=== PATIENT | female | born 1995 | race Caucasian/White ===

== ENCOUNTER 2019-04-26 16:14 | Emergency (ER) | payer BC, OTHER ==
[2019-04-26] MEDS ORDERED: SODIUM CHLORIDE 0.9% 1,000 ML IV ONE (16:57)
[2019-04-26 17:34] LABS: ALT 18 U/L (9-52); AST 16 U/L (14-36); African American GFR (CKD) >90 (>60 ml/min/1.73 sqM); Alkaline Phosphatase 60 U/L (38-126); Anion Gap 10 mmol/L; Blood Urea Nitrogen 5 mg/dL (7-17); Calcium 9.3 mg/dL (8.4-10.2); Carbon Dioxide 21 mmol/L (22-30); Chloride 105 mmol/L (98-107); Glucose 87 mg/dL (74-99); Potassium 3.6 mmol/L (3.5-5.1); Sodium 136 mmol/L (137-145); Total Bilirubin 0.3 mg/dL (0.2-1.3); Total Protein 6.9 g/dL (6.3-8.2)
[2019-04-26 17:39] LABS: INR 0.9 (<1.2); Prothrombin Time 9.7 sec (9.0-12.0)
[2019-04-26 17:40] LABS: Partial Thromboplastin Time 22.8 sec (22.0-30.0)
[2019-04-26 17:52] LABS: Anisocytosis Slight; Basophils % (A) 0 %; Eosinophils # (A) 0.1 k/uL (0-0.7); Eosinophils % (A) 1 %; HCT 35.3 % (34.0-46.0); HGB 12.3 gm/dL (11.4-16.0); Lymphocytes # (A) 1.2 k/uL (1.0-4.8); Lymphocytes % (A) 16 %; MCH 28.6 pg (25.0-35.0); MCHC 34.7 g/dL (31.0-37.0); MCV 82.4 fL (80.0-100.0); Monocytes # (A) 0.3 k/uL (0-1.0); Monocytes % (A) 4 %; Neutrophils # (A) 5.7 k/uL (1.3-7.7); Neutrophils % (A) 78 %; Platelet Count 234 k/uL (150-450); RBC 4.29 m/uL (3.80-5.40); RDW 16.2 % (11.5-15.5); WBC 7.3 k/uL (3.8-10.6)
--- NOTE | 2019-04-26 18:03 | US ---
EXAMINATION TYPE: Transabdominal DATE OF EXAM: 04/26/2019 5:47 PM COMPARISON: US CLINICAL HISTORY: Pain per order. Vaginal bleeding x 3 hours. . EXAM PERFORMED: Transabdominal (TA) EXAM MEASUREMENTS: GESTATIONAL AGE / DATING Physician Established: (12 weeks/0 days) EDC: 11/08/2019 Dates by LMP: (13 weeks/0 days) EDC: 11/01/2019 Dates by First Scan: This is first scan Dates by Current Scan for: (12 weeks/0 days) EDC: 11/08/2019 MATERNAL ANATOMY Uterus: 11.3 x 7.9 x 6.4 cm. Right Ovary: 3.4 x 2.9 x 2.5 cm. Anechoic area seen measurin.1 x 1.2 x 1.2 cm. Left Ovary: 2.7 x 1.8 x 1.9 cm. Post CDS / Adnexa: appears wnl Presence of free fluid: none seen Presence of corpus luteal cyst: not seen with certainty. Anechoic area seen right ovary as mentioned above: 1.1 x 1.2 x 1.2 cm. Presence of subchorionic bleed: not seen GESTATION / SURVEY CRL: 5.31 cm. (12 weeks/0 days) Yolk Sac (normal less than 6mm): not seen with certainty Heart Rate: 172 bpm Rhythm: Heart rate measures upper limits of normal IUP: Viable IUP Nuchal Translucency 10-14wks (normal less than 3mm): not well seen Date of LMP: 01/26/2020 Beta HcG (if available): not available IMPRESSION: heart rate is noted to measure upper limits of normal, otherwise no complicating process is see n. Single live intrauterine has a sonographic age of 12 weeks and 0 days, slightly discorda nt with menstrual age. Estimated date of delivery of 11/08/2019.
[2019-04-26 18:17] LABS: HCG,Quantitative Serum 60303.2 mIU/mL
[2019-04-26 18:49] VITALS: PULSE 97
[2019-04-26 18:54] LABS: Appearance,Urine Clear (Clear); Bacteria,Urine Rare /hpf; Bilirubin,Urine Negative (Negative); Blood,Urine Moderate (Negative); Color,Urine Light Yellow; Glucose,Urine (UA) Negative (Negative); Hyaline Casts,Urine 10 /lpf (0-2); Ketones,Urine 1+ (Negative); Leukocyte Esterase,Urine Negative (Negative); Mucus,Urine Occasional /hpf; Nitrite,Urine Negative (Negative); PH, Urine 6.5 (5.0-8.0); Protein,Urine Trace (Negative); RBC,Urine 1 /hpf (0-5); Specific Gravity,Urine 1.008 (1.001-1.035); Squamous Epithelial Cell,Urine 1 /hpf (0-4); Urobilinogen,Urine <2.0 mg/dL (<2.0); WBC,Urine 1 /hpf (0-5)
[2019-04-26] MEDS ORDERED: CEPHALEXIN 500 MG CAP PO STA (19:55)
--- NOTE | 2019-04-26 19:58 | ED ---
General Adult HPI - General Chief complaint: Vaginal Bleeding Stated complaint: Vaginal bleeding Time Seen by Provider: 04/26/19 16:25 Source: patient Mode of arrival: ambulatory Limitations: no limitations - History of Present Illness Initial comments: The patient is a 23-year-old female presents emergency room with report of vaginal bleeding. The patient is approximately 12 weeks . She does see Dr. Sarmiento out of [facility]. States that she had an appointment last week in office. Pap smear and ultrasound were performed. Patient has not had any previous vaginal bleeding or issues with this . The patient is . Today the patient was at work. She had the sensation that she had urinated on herself. She went into the bathroom to find a significant amount of blood. She did sit on the toilet and passed a small amount of tissue. She did call her family who did call EMS and transported her to the hospital. She is highly concerned that she is having a miscarriage. Did have an elective for her first . This was 3 years ago. She denies any abdominal cramping or pain. No recent fevers or chills. Denies any back or flank pain. No changes in her urination to include dysuria, hematuria or difficulty voiding. Denies any changes in her bowel movements including diarrhea, constipation, paula anotic stools or hematochezia. No abnormal vaginal discharge. No concern for sexually transmitted infections. No recent abdominal trauma. There are no other alleviating, precipitating or modifying factors - Related Data Home Medications Medication Instructions Recorded Confirmed Kgl-[id number]-Bmqwa Acid 1 cap PO DAILY 04/26/19 04/26/19 [-U Capsule (formulary)] Previous Rx's Medication Instructions Recorded Cephalexin [Keflex] 500 mg PO Q12HR 5 Days #10 cap 04/26/19 Allergies Allergy/AdvReac Type Severity Reaction Status Date / Time Penicillins Allergy Unknown Unknown Verified 04/26/19 16:49 Review of Systems ROS Statement: Those systems with pertinent positive or pertinent negative responses have been documented in the HPI. ROS Other: All systems not noted in ROS Statement are negative. Past Medical History Past Medical History: Asthma Additional Past Medical History / Comment(s): Anemia History of Any Multi-Drug Resistant Organisms: None Reported Past Surgical History: No Surgical Hx Reported Past Psychological History: No Psychological Hx Reported Smoking Status: Never smoker Past Alcohol Use History: None Reported Past Drug Use History: None Reported General Exam Limitations: no limitations General appearance: alert, in no apparent distress Head exam: Present: atraumatic, normocephalic, normal inspection Eye exam: Present: normal appearance, PERRL, EOMI. Absent: scleral icterus, conjunctival injection, periorbital swelling ENT exam: Present: normal exam, mucous membranes moist Neck exam: Present: normal inspection. Absent: tenderness, meningismus, lymphadenopathy Respiratory exam: Present: normal lung sounds bilaterally. Absent: respiratory distress, wheezes, rales, rhonchi, stridor Cardiovascular Exam: Present: normal rhythm, tachycardia, normal heart sounds. Absent: systolic murmur, diastolic murmur, rubs, gallop, clicks GI/Abdominal exam: Present: soft, normal bowel sounds. Absent: distended, tenderness, guarding, rebound, rigid External exam: Present: normal external exam. Absent: erythema, swelling, lesions, lacerations Speculum exam: Present: normal speculum exam, vaginal bleeding, other (cervix is closed). Absent: erythema, vaginal discharge, cervical discharge, foreign body, tissue Extremities exam: Present: normal inspection, full ROM, normal capillary refill. Absent: tenderness, pedal edema, joint swelling, calf tenderness Back exam: Present: normal inspection Neurological exam: Present: alert, oriented X3, CN II-XII intact Psychiatric exam: Present: normal affect, normal mood Skin exam: Present: warm, dry, intact, normal color. Absent: rash Course Vital Signs 04/26/19 04/26/19 04/26/19 16:21 18:48 20:19 Temperature 98.6 F 98.4 F Pulse Rate 111 H 97 97 Respiratory 20 16 18 Rate Blood Pressure 141/108 130/87 128/87 O2 Sat by Pulse 99 100 99 Oximetry Medical Decision Making - Medical Decision Making Upon arrival the patient is placed in room 22. She is hooked up to continuous pulse ox and cardiac monitoring. A thorough history of physical exam was performed. The patient is not having any pain at this time. I did recommend IV access. The patient was given a liter of normal saline. Laboratory studies were conducted. Hemoglobin is 12.3. Platelets 234. PT 9.7. INR 0.9. Sodium 136, creatinine 0.8, beta Quant is 60,303. Urinalysis shows trace protein, 1+ ketones, moderate blood, rare bacteria, 10 hyaline casts and occasional mucous. The patient's blood type is A+. Ultrasound of the demonstrates heart rates at 172 bpm. No accompanying process seen. Single live intrauterine has sonographic age of 12 weeks and 0 days. Slightly di scordant with menstrual age. I did discuss this with the patient. She reports that her bleeding has slowed at this time. I do evaluate the tissue that the patient passed that she did bring it into the emergency room and it does consist of blood clot and membranous tissue. I did perform a pelvic exam which demonstrated a small amount of bright red blood in the vagina. No tissue seen. Cervix is closed. I called and discuss the results with Dr. Dillon who is a partner of Dr. Sarmiento. He does agree to pelvic rest, antibiotic treatment for abnormal ua and follow-up with Dr. Sarmiento in office. I informed patient of this. She is informed to not use tampons or have intercourse. No heavy lift ing. She will be given a work note. I did provide the patient with a dose of Keflex in the ER here at she will also be given a prescription for Keflex. If the patient has any new or worsening symptoms she should return to the emergency room. The patient was then discharged home in stable condition - Lab Data Result diagrams: 04/26/19 17:10 04/26/19 17:10 Lab Results 04/26/19 04/26/19 04/26/19 Range/Units 17:09 17:10 17:10 WBC 7.3 (3.8-10.6) k/uL RBC 4.29 (3.80-5.40) m/uL Hgb 12.3 (11.4-16.0) gm/dL Hct 35.3 (34.0-46.0) % MCV 82.4 (80.0-100.0) fL MCH 28.6 (25.0-35.0) pg MCHC 34.7 (31.0-37.0) g/dL RDW 16.2 H (11.5-15.5) % Plt Count 234 (150-450) k/uL Neutrophils % 78 % Lymphocytes % 16 % Monocytes % 4 % Eosinophils % 1 % Basophils % 0 % Neutrophils # 5.7 (1.3-7.7) k/uL Lymphocytes # 1.2 (1.0-4.8) k/uL Monocytes # 0.3 (0-1.0) k/uL Eosinophils # 0.1 (0-0.7) k/uL Basophils # 0.0 (0-0.2) k/uL Anisocytosis Slight PT (9.0-12.0) sec INR (<1.2) APTT (22.0-30.0) sec Sodium (137-145) mmol/L Potassium (3.5-5.1) mmol/L Chloride (98-107) mmol/L Carbon Dioxide (22-30) mmol/L Anion Gap mmol/L BUN (7-17) mg/dL Creatinine (0.52-1.04) mg/dL Est GFR (CKD-EPI)AfAm (>60 ml/min/1.73 sqM) Est GFR (CKD-EPI)NonAf (>60 ml/min/1.73 sqM) Glucose (74-99) mg/dL Calcium (8.4-10.2) mg/dL Total Bilirubin (0.2-1.3) mg/dL AST (14-36) U/L ALT (9-52) U/L Alkaline Phosphatase (38-126) U/L Total Protein (6.3-8.2) g/dL Albumin (3.5-5.0) g/dL HCG, Quant mIU/mL Urine Color Urine Appearance (Clear) Urine pH (5.0-8.0) Ur Specific Liberty (1.001-1.035) Urine Protein (Negative) Urine Glucose (UA) (Negative) Urine Ketones (Negative) Urine Blood (Negative) Urine Nitrite (Negative) Urine Bilirubin (Negative) Urine Urobilinogen (<2.0) mg/dL Ur Leukocyte Esterase (Negative) Urine RBC (0-5) /hpf Urine WBC (0-5) /hpf Ur Squamous Epith Cells (0-4) /hpf Urine Bacteria (None) /hpf Hyaline Casts (0-2) /lpf Urine Mucus (None) /hpf Blood Type A Positive Blood Type Confirm A Positive Blood Type Recheck No Previous Record Bld Type Recheck Status CABO Indicated Antibody Screen NEGATIVE Spec Expiration Date 04/29/2019 - 230904/26/19 04/26/19 04/26/19 Range/Units 17:10 17:10 18:40 WBC (3.8-10.6) k/uL RBC (3.80-5.40) m/uL Hgb (11.4-16.0) gm/dL Hct (34.0-46.0) % MCV (80.0-100.0) fL MCH (25.0-35.0) pg MCHC (31.0-37.0) g/dL RDW (11.5-15.5) % Plt Count (150-450) k/uL Neutrophils % % Lymphocytes % % Monocytes % % Eosinophils % % Basophils % % Neutrophils # (1.3-7.7) k/uL Lymphocytes # (1.0-4.8) k/uL Monocytes # (0-1.0) k/uL Eosinophils # (0-0.7) k/uL Basophils # (0-0.2) k/uL Anisocytosis PT 9.7 (9.0-12.0) sec INR 0.9 (<1.2) APTT 22.8 (22.0-30.0) sec Sodium 136 L (137-145) mmol/L Potassium 3.6 (3.5-5.1) mmol/L Chloride 105 (98-107) mmol/L Carbon Dioxide 21 L (22-30) mmol/L Anion Gap 10 mmol/L BUN 5 L (7-17) mg/dL Creatinine 0.48 L (0.52-1.04) mg/dL Est GFR (CKD-EPI)AfAm >90 (>60 ml/min/1.73 sqM) Est GFR (CKD-EPI)NonAf >90 (>60 ml/min/1.73 sqM) Glucose 87 (74-99) mg/dL Calcium 9.3 (8.4-10.2) mg/dL Total Bilirubin 0.3 (0.2-1.3) mg/dL AST 16 (14-36) U/L ALT 18 (9-52) U/L Alkaline Phosphatase 60 (38-126) U/L Total Protein 6.9 (6.3-8.2) g/dL Albumin 4.0 (3.5-5.0) g/dL HCG, Quant 25592.2 mIU/mL Urine Color Light Yellow Urine Appearance Clear (Clear) Urine pH 6.5 (5.0-8.0) Ur Specific Liberty 1.008 (1.001-1.035) Urine Protein Trace H (Negative) Urine Glucose (UA) Negative (Negative) Urine Ketones 1+ H (Negative) Urine Blood Moderate H (Negative) Urine Nitrite Negative (Negative) Urine Bilirubin Negative (Negative) Urine Urobilinogen <2.0 (<2.0) mg/dL Ur Leukocyte Esterase Negative (Negative) Urine RBC 1 (0-5) /hpf Urine WBC 1 (0-5) /hpf Ur Squamous Epith Cells 1 (0-4) /hpf Urine Bacteria Rare H (None) /hpf Hyaline Casts 10 H (0-2) /lpf Urine Mucus Occasional H (None) /hpf Blood Type Blood Type Confirm Blood Type Recheck Bld Type Recheck Status Antibody Screen Spec Expiration Date Disposition Clinical Impression: Threatened Disposition: HOME SELF-CARE Condition: Serious Instructions (If sedation given, give patient instructions): Threatened Miscarriage (ED) Additional Instructions: Please follow-up with Dr. Sarmiento as soon as possible. Return to the emergency room for any new or worsening symptoms Prescriptions: Cephalexin [Keflex] 500 mg PO Q12HR 5 Days #10 cap Is patient prescribed a controlled substance at d/c from ED?: No Referrals: Willian Pascual MD [Primary Care Provider] - 1-2 days Time of Disposition: 19:58
[2019-04-26 20:27] VITALS: BP 128/87; RESP 18; TEMP 98.4
== END 2019-04-26 20:19 | disposition home or self-care (01) ==
LOC: EC 16:14
DX: O20.0 Threatened abortion (principal); O99.89 Other specified diseases and conditions complicating pregnancy, childbirth and the puerperium; R80.9 Proteinuria, unspecified; R82.4 Acetonuria; R82.71 Bacteriuria; R82.998 Other abnormal findings in urine; R00.0 Tachycardia, unspecified; Z67.10 Type A blood, Rh positive; Z88.0 Allergy status to penicillin; Z3A.12 12 weeks gestation of pregnancy
CPT/HCPCS: 36415; 76801; 80053; 81001; 84702; 85025; 85610; 85730; 86850; 86900; 86901; 96360; 96361; 99284